=== PATIENT | female | born 2005 | race Caucasian/White ===

== ENCOUNTER 2025-04-18 15:28 | Emergency (ER) | payer OTHER, SELFPAY ==
--- OUTSIDE RECORDS SUMMARY | 2025-03-26 10:00 | XMS_ITS | Encounter Summary ---
Author Organization [facility] Address [address] [place] [address] Care Team Providers Care Ambulance Dispatcher Name Role Phone Agatha Saucedo MD Primary Care Provider [phone] Reason for Visit * Reason Comments Annual Exam 19 yEAR Encounter Details Date Type Department Care Team (Late st Contact Info) Description 03/26/2025 10:00 AM CDT Office Visit [facility] [address] [facility] [address] [place] [phone] Agatha Saucedo MD [address] [place], [place] [id number] General medical examination (Primary Dx); Nutritional counseling; Exercise counseling; Screening, anemia, deficiency, iron Social History Tobacco Use Types Packs/Day Years Used Date Smoking Tobacco: Never Smokeless Tobacco: Never Comments No Sex and Gender Information Value Date Recorded Sex Assigned at Not on file Legal Sex Female 3:57 AM ELEVATED GUARD Gender Identity Female 08/09/2022 2:43 PM ELEVATED GUARD Sexual Orientation Not on file documented as of this encounter Last Filed Vital Signs Vital Sign Reading Time Taken Comments Blood Pressure 100/60 03/26/2025 10:10 AM CDT Pulse - - Temperature - - Respiratory Rate - - Oxygen Saturation - - Inhaled Oxygen Concentration - - Weight 61 kg (134 lb 8 oz) 03/26/2025 10:10 AM C DT Height 167.6 cm (5' 6) 03/26/2025 10:10 AM CDT Body Mass Index 21.71 03/26/2025 10:10 AM CDT documented in this encounter Progress Notes * Agatha Saucedo MD - 03/26/2025 10:00 AM CDT Images from the original note were not included. Annual Adult Exam Name: Alyssa Reza Age: 19 y.o. Date: 03/26/2025 Historian(s): self Subjective Problem list : Adolescent idiopathic scoliosis of lumbar region Home Medications: norgestimate-ethinyl estradioL 1 tablet Oral Daily Past Medical, Family, Social History reviewed/updated as appropriate in medical record. Current concerns: After returning from [place] threw up and then the week after was nauseated and she was worried. It is now better School: School grade next fall: [employer]- studying biology School performance: good School accommodations: none Social/behavioral concerns: no Future plans: Deciding between medicine and research Exercise & Activities: Sports, activities, or clubs?: Walks/runs/swimming Physically active: Many days Media/screen time: 2+ hr/day PPE/Cardiac Screening: Chest pain with exercise: No Excessive SOB/fatigue w/ exercise: No Unexplained syncope/presyncope: No Hx of hypertension or murmur: No Hx of concussions: No Chronic/ongoing MSK concerns: No FHx sudden or cardiac <50 yo No FHx of cardiac disease: No Nutrition/Elimination: Well-balanced diet: yes Vitamins or supplements: none Juice/soda intake: never Fast food/junk food intake: rarely Constipation problems: none Sleep: Sleep problems: no sleep issues Menstrual History: - age of menarche: 12 years of age (answered at previous visit) - description of periods: regular, normal flow and duration, without concerning cramping Mental health: 03/26/2025 [place] Suicide Screening (USS) Scores Only ASQ Suicide Screening Score Screening Complete - no intervention necessary Patient-reported 03/26/2025 PROMIS Core 4 Scores Only PROMIS Global Mental Health T-Score 53 (Very Good) PROMIS Global Physical Health T-Score 54 (Very Good) PROMIS Positive Affect T-Score 53 (average) PROMIS Anxiety T-Score 35 (within normal limits) PROMIS Depression T-Score 36 (within normal limits) Mental health: no concerns Recent stresses or challenges: none Social/Safety: Living arrangements: Lives with both parents Others living in home: 1 brother heathy Exposure to tobacco smoke in home: No Sees a dentist regularly: yes Safety topics discussed: yes Objective BP 100/60 Ht 167.6 cm (66) Wt 61 kg (134 lb 8 oz) BMI 21.71 kg/m?? Blood pressure %bobby are not available for patients who are 18 years or older. BMI: 21.71 kg/m?? (51%, Z= 0.01, Source: [facility] (Girls, 2-20 Years)) Cryptological Technician documentation : Cryptological Technician offered and declined by patient/family General: cooperative and well appearing Head: atraumatic and normocephalic Eyes: lids, conjunctivae and sclerae normal, EOMI Ears: normal external ears, right TM pearly olvera with normal landmarks, left TM pearly olvera with normal landmarks Nose: no significant congestion/rhinorrhea Mouth: mucus membranes moist with no lesions. Tonsils are not enlarged, not inflamed. Teeth: no visible caries Neck: supple, no adenopathy, no thyromegaly or masses Lungs: clear to auscultation bilaterally Heart: regular rate and rhythm, S1, S2 normal, there is no murmur Abdomen: soft, non-distended, non-tender, no masses Back: normal curvature : Normal female external genitalia. SMR IV Skin: no rash or abnormal dyspigmentation Musculoskeletal: normal strength and movement Neuro: normal tone throughout, normal coordination, normal gait, patellar reflexes normal and symmetrical. No results found. Results for orders placed or performed in visit on 03/26/25 [facility] POCT Hemoglobin Blood Result Value Ref Range POC Hemoglobin 13.2 12.5 - 16 g/dl Lot # of the Box [id number] NULL Expiration Date 11/05/2026 NULL Assessment/Plan: 1. General medical examination 2. Nutritional counseling 3. Exercise counseling 4. Screening, anemia, deficiency, iron Annual adult exam: Growth: normal Immunizations: Vaccine counseling provided. PROMIS Disposition: Routine follow-up Suicide screening completed, no intervention needed Screenings: Vision: Vision screen: Not Assessed Hearing: Hearing screen: Not Assessed Sports Clearance: Cleared without restriction Guidance: routine guidance discussed including nutrition and physical activity Follow up: Orders Placed This Encounter Procedures Meningococcal B, OMV (Bexsero) CMG POCT Hemoglobin Blood No medications ordered at this visit Agatha Saucedo MD [facility] documented in this encounter Plan of Treatment Not on file documented as of this encounter Procedures Procedure Name Priority Date/Time Associated Diagnosis Comments CMG POCT HEMOGLOBIN BLOOD Routine 03/26/2025 10:13 AM CDT Screening, anemia, deficiency, iron documented in this encounter Results * CMG POCT Hemoglobin Blood (03/26/2025 10:13 AM CDT) [facility] POC Hemoglobin 13.2 12.5 - 16 g/dl Lot # of the Box [id number] NULL Expiration Date 11/05/2026 NULL Blood 03/26/2025 10:1 3 AM CDT Agatha Saucedo MD POINT OF CARE TEST ORDERABLES Final Result documented in this encounter Visit Diagnoses Diagnosis General medical examination- Primary Unspecified general medical examination Nutritional counseling Exercise counseling Screening, anemia, deficiency, iron Screening for iron deficiency anemia documented in this encounter Care Teams Ambulance Dispatcher Relationship Specialty Start Date End Date Agatha Saucedo MD [address] [place] [address] PCP - General Pediatrics 08/14/12 documented as of this encounter
[2025-04-18 15:39] VITALS: BP 127/86; PULSE 88; RESP 18; TEMP 37; O2SAT 98; BMI 21.8
--- NOTE | 2025-04-18 16:27 | ED_ITS ---
HPI - Abdominal Pain General Chief Complaint: Abdominal Pain Stated Complaint: Stomach pain Time Seen by Provider: 04/18/25 15:52 History of Present Illness HPI narrative: This 19-year-old female comes in reporting a few days of upper epigastric abdominal pain that seems to be worse after taking food. She states that she has taken some Tums and Pepcid and feels like she got a little bit of relief. She had similar symptoms about a month ago. She does not report any fever and otherwise is in good health. She has not had any nausea or vomiting. Related Data Home Medications ?Medication ?Instructions ?Recorded ?Confirmed control pills 04/18/25 Previous Rx's ?Medication ?Instructions ?Recorded pantoprazole 20 mg tablet,delayed 20 mg PO DAILY #20 t abs 04/18/25 release (Protonix) Allergies Allergy/AdvReac Type Severity Reaction Status Date / Time No Known Drug Allergies Allergy Verified 04/18/25 15:39 Review of Systems Status of ROS Reports: 10 or more systems reviewed and unremarkable except as noted in History and below Narrative Constitutional: No fevers, no weight gain or loss. Eyes: No discharge. No vision changes. HENT: No congestion, no sore throat, no ear pain. Cardiovascular: No chest pain, no palpitations. Respiratory: No shortness of breath, no wheezes, no cough. Gastrointestinal: No vomiting, no diarrhea. Upper epigastric abdominal pain as described above. Genitourinary: No dysuria, no hematuria. Musculoskeletal: Normal range of motion. Skin: No rashes, no pruritis. Neurological: No dizziness, weakness, sensory change, speech change. Endo/Heme/Allergies: No bruising or bleeding. No polydipsia. Pysch: no suicidality, no anxiety, no insomnia. All other systems reviewed and are negative. Exam Narrative: Exam Narrative: Constitutional: Well-developed, well-nourished, no acute distress. HEENT: Normocephalic, atraumatic. Neck: Normal range of motion. Nontender. Supple. Heart: Regular. No murmurs. Normal rate. Intact distal pulses. Lungs: Clear to auscultation. No chest discomfort. No wheezes, rhonchi, or rales. Abdomen: Normal bowel sounds. Mild tenderness in the upper epigastric region. No rebound tenderness. Genitalia: Deferred. Back: No midline tenderness. Normal range of motion. Extremities: Normal range of motion. No injury. Skin: Intact. No rash. Warm. No erythema or pallor. Neurologic: No altered sensation. No weakness. Alert and oriented. Psychiatric: No suicidality. No anxiety or depression. No insomnia. Nursing notes and vitals signs are reviewed. Const: Vital Signs, click to edit/add: Vital Signs - 24 hr 04/18/25 15:39 Temperature 98.6 F Pulse Rate [Right Pulse Oximeter] 88 Respiratory Rate 18 Blood Pressure [Ri ght Upper Arm] 127/86 Pulse Oximetry 98 Oxygen Delivery Me thod Room Air Course Vital Signs Vital signs: Initial Vital Signs Temperature 98.6 F 04/18/25 15:39 Temperature Source Temporal Artery Scan 04/18/25 15:39 Pulse Rate 88 04/18/25 15:39 Respiratory Rate 18 04/18/25 15:39 Blood Pressure 127/86 04/18/25 15:39 Blood Pressure Mean 99 04/18/25 15:39 Blood Pressure Position Sitting 04/18/25 15:39 Pulse Oximetry 98 04/18/25 15:39 Oxygen Delivery Method Room Air 04/18/25 15:39 Vital Signs Temperature 98.6 F 04/18/25 15:39 Pulse Rate 88 04/18/25 15:39 Respiratory Rate 18 04/18/25 15:39 Blood Pressure 127/86 04/18/25 15:39 Pulse Oximetry 98 04/18/25 15:39 Oxygen Delivery Method Room Air 04/18/25 15:39 Temperature 98.6 F 04/18/25 15:39 Pulse Rate 88 04/18/25 15:39 Respiratory Rate 18 04/18/25 15:39 Blood Pressure 127/86 04/18/25 15:39 Pulse Oximetry 98 04/18/25 15:39 Oxygen Delivery Method Room Air 04/18/25 15:39 MDM - Abdominal Pain MDM Narrative Medical decision making narrative: This patient comes in with upper epigastric pain more typical of gastritis or reflux esophagitis. She arrives with normal vital signs. She is not in much discomfort at this time. She does not have any pain in her right upper quadrant when palpating over her gallbladder. I did use bedside ultrasound to look at her gallbladder and upper abdomen structures with normal results. I did provide a prescription for Protonix and instructed her regarding some foods and drinks that can be offensive for these symptoms. Discharge Plan Discharge Clinical Impression: Gastritis Patient Disposition: Home, Self-Care Condition: Stable Additional Instructions: Take medication as prescribed. Follow up with MD or return if symptoms are persistent or worsening. Prescriptions: New pantoprazole [Protonix] 20 mg tablet,delayed release (DR/EC) 20 mg PO DAILY Qty: 20 2RF No Action control pills Stand Alone Forms: [employer] Info Instructions Procedures POC Ultrasound Biliary Anatomical areas examined: gallbladder, long and short axis and common bile duct Indications: RUQ/epigastric pain Exam type: limited abdominal ultrasound; RUQ Impression: normal exam
--- OUTSIDE RECORDS SUMMARY | 2025-04-18 16:58 | XMS_ITS | Encounter Summary ---
Author Organization [facility] Address [address] [place] [address] Care Team Providers Care Teacher Cclc Name Role Phone Agatha Saucedo MD Primary Care Provider [phone] Reason for Visit * Reason Comments Medication Refill Encounter Details Date Type Department Care Team (Late st Contact Info) Description 04/06/2025 Refill [facility] [address] [place] [phone] Ankita Orr APNP [address] [place] [address] Medication Refill Social History Tobacco Use Types Packs/Day Years Used Date Smoking Tobacco: Never Smokeless Tobacco: Never Comments No Sex and Gender Information Value Date Recorded Sex Assigned at Not on file Legal Sex Female 3:57 AM AQUATIC PERFORMER Gender Identity Female 08/09/2022 2:43 PM AQUATIC PERFORMER Sexual Orientation Not on file documented as of this encounter Miscellaneous Notes * Telephone Encounter - Jeremy Ferguson RN - 04/08/2025 11:31 AM CDT Medication Refill Alyssa Reza : 2005 Age: 19 y.o. Date: 04/08/2025, 11:31 AM PCP: Agatha Saucedo MD Call taken by: Jeremy Ferguson RN Medication(s) and dose needing refilled: norgestimate-ethinyl estradioL (ORTHO- CYCLEN) 0.25-35 mg-mcg per tablet Any concerns with the medication? none Additional Medications needing Refill: No Current allergies: Cats New allergies or meds? no Allergy List Verified? yes Refill preference: Pharmacy verified: yes Last Med [facility] APPT: Last [facility] appointment: 03/26/2025 [facility] in last 12 months verified? yes No future appointments. documented in this encounter Plan of Treatment Not on file documented as of this encounter Visit Diagnoses Diagnosis Dysmenorrhea- Primary documented in this encounter Care Teams Teacher Cclc Relationship Specialty Start Date End Date Agatha Saucedo MD [address] [place] [address] PCP - General Pediatrics 08/14/12 documented as of this encounter
--- OUTSIDE RECORDS SUMMARY | 2025-04-18 16:58 | XMS_ITS | Encounter Summary ---
Author Organization [facility] Address [address] [facility] [place] [address] Care Team Providers Care Wool Sorter Name Role Phone Agatha Saucedo MD Primary Care Provider [phone] Reason for Visit * Reason Comments Neck Pain Encounter Details Date Type Department Care Team (Late st Contact Info) Description 08/24/2014 Telephone [facility] [address] [phone] Agatha Saucedo MD [address] [place], [place] [phone] Neck Pain Social History Tobacco Use Types Packs/Day Years Used Date Smoking Tobacco: Never Assessed Comments Unknown Sex and Gender Information Value Date Recorded Sex Assigned at Not on file Legal Sex Female 3:57 AM VACUUM CLEANER MECHANIC Gender Identity Female 08/09/2022 2:43 PM VACUUM CLEANER MECHANIC Sexual Orientation Not on file documented as of this encounter Miscellaneous Notes * Telephone Encounter - Agatha Saucedo MD - 08/24/2014 4:28 PM CST Agree with assessment and plan below. Agatha Saucedo MD UM CLEANER MECHANIC * Telephone Encounter - Cinthya Pritchard RN - 08/24/2014 4:19 PM CST Alyssa Counts 9 y.o. female Allergies Allergen Reactions ??? Cats Swelling has a current medication list which includes the following prescription(s): acetaminophen, amoxicillin, hydrocortisone, and imiquimod cream. Mom contacted office. Alyssa has a pulled muscle in her neck for 2 days. Heat and Motrin make symptoms better. Afebrile and denies other symptoms. Discussed continue with heat, rest and Motrin every 6 hours. If symptoms do not improve or worsen in the next 2 days, appointment recommended. Mom voiced understanding. Cinthya Pritchard UM CLEANER MECHANIC documented in this encounter Plan of Treatment Not on file documented as of this encounter Visit Diagnoses Not on filedocumented in this encounter Care Teams Wool Sorter Relationship Specialty Start Date End Date Agatha Saucedo MD [address] [place] [address] PCP - General Pediatrics 08/14/12 documented as of this encounter
--- OUTSIDE RECORDS SUMMARY | 2025-04-18 16:58 | XMS_ITS | Encounter Summary ---
Author Organization [facility] Address [address] [place] [address] Care Team Providers Care Veneer Splicer Name Role Phone Agatha Saucedo MD Primary Care Provider [phone] Encounter Details Date Type Department Care Team (Late st Contact Info) Description 05/25/2011 Abstract [facility] [address] [place] [address] [facility] Historical, Provider [address] [place] [address] Social History Tobacco Use Types Packs/Day Years Used Date Smoking Tobacco: Never Assessed Comments Unknown Sex and Gender Information Value Date Recorded Sex Assigned at Not on file Legal Sex Female 3:57 AM STOCK PATCH SAWYER Gender Identity Female 08/09/2022 2:43 PM STOCK PATCH SAWYER Sexual Orientation Not on file documented as of this encounter Last Filed Vital Signs Vital Sign Reading Time Taken Comments Blood Pressure - - Pulse - - Temperature - - Respiratory Rate - - Oxygen Saturation - - Inhaled Oxygen Concentration - - Weight 27.3 kg (60 lb 3 oz) 05/25/2011 6:50 PM C DT Height - - Body Mass Index - - documented in this encounter Plan of Treatment Not on file documented as of this encounter Visit Diagnoses Not on filedocumented in this encounter Care Teams Veneer Splicer Relationship Specialty Start Date End Date Agatha Saucedo MD [address] [place], [place] [phone] PCP - General Pediatrics 08/14/12 documented as of this encounter
--- OUTSIDE RECORDS SUMMARY | 2025-04-18 16:58 | XMS_ITS | Encounter Summary ---
Author Organization [facility] Address [address] [place] [address] Care Team Providers Care Mixer Operator Raw Salt Name Role Phone Agatha Saucedo MD Primary Care Provider [phone] Encounter Details Date Type Department Care Team (Late st Contact Info) Description 07/16/2024 [facility] [address] [phone] Agatha Saucedo MD [address] [place], [place] [phone] Social History Tobacco Use Types Packs/Day Years Used Date Smoking Tobacco: Never Smokeless Tobacco: Never Comments No Sex and Gender Information Value Date Recorded Sex Assigned at Not on file Legal Sex Female 3:57 AM FOSTER CARE THERAPIST Gender Identity Female 08/09/2022 2:43 PM FOSTER CARE THERAPIST Sexual Orientation Not on file documented as of this encounter Plan of Treatment Not on file documented as of this encounter Visit Diagnoses Not on filedocumented in this encounter Care Teams Mixer Operator Raw Salt Relationship Specialty Start Date End Date Agatha Saucedo MD [address] [place], [place] [phone] PCP - General Pediatrics 08/14/12 documented as of this encounter
--- OUTSIDE RECORDS SUMMARY | 2025-04-18 16:58 | XMS_ITS | Clinical Summary ---
Author Organization [facility] Address [address] [facility] [place] [address] Care Team Providers Care Product Builder Name Role Phone Agatha Saucedo MD Primary Care Provider Allergies Active Allergy Reactions Criticality Noted Date Comments Cats Swelling High 07/26/2012 Medications ESTARYLLA 0.25-0.035 mg per tabletIndicatio ns:Dysmenorrhea TAKE 1 TABLET BY MOUTH DAILY 84 tablet 2 5 Active norgestimate-et hinyl estradioL (ORTHO-CYCLEN) 0.25-35 mg-mcg per tabletIndicatio ns:Dysmenorrhea Take 1 tablet by mouth daily. 84 tablet 2 4 04/08/20 25 Discontinued Active Problems Problem Noted Date Diagnosed Date Adolescent idiopathic scoliosis of lumbar region 12/04/2017 Overview (01/10/2020): Recheck 07/2020 Resolved Problems Problem Noted Date Diagnosed Date Resolved Date Patellofemoral pain syndrome of right knee 03/20/2019 01/23/2020 Alternate vaccine schedule 11/21/2016 0 01/23/2020 Overview (11/21/2016): Will come back for menactra Tachycardia 08/19/2012 11/21/2016 Encounters Date Type Department Care Team Description 04/06/2025 Refill [facility] [address] [place] [address] Ankita Orr APNP Medication Refill 03/26/2025 10:00 AM CDT Office Visit [facility] [address] [place] [address] Agatha Saucedo MD General medical examination (Primary Dx); Nutritional counseling; Exercise counseling; Screening, anemia, deficiency, iron from Last 3 Months Immunizations Immunization Administration Dates Next Due DTaP,less than 7yo 02/28/2007 DTaP/Hep B/IPV(Pediarix) 02/14/2006,2005,0 2005 DTaP/IPV(Kinrix/Quadracel) 09/24/2009 HPV 9-VALENT 03/08/2021,01/23/2020 Hepatitis A Peds 2 Dose 02/28/2007,08/20/2006 Hepatitis B Peds/Adol 2005 HiB (PRP-OMP) 11/16/2006, 6,2005,10/16 Influenza A H1N1,unspecified 08/03/2009 Influenza Quadrivalent P-Free 08/23/2017 Influenza Vaccine Trivalent, Preservative Free 07/21/2024 MMR 06/09/2011 MMRV(Proquad) 08/20/2006 Meningococcal B, Omv (Bexsero) 03/26/2025,2023 Meningococcal Conjugate MCV4O 11/23/2022 Meningococcal Conjugate MCV4P 03/16/2017 Pfizer Purple Cap SARS-CoV-2 Vaccination, 12 and older 01/08/2021,12/18/2020 Pneumococcal Conjugate PCV 7 11/16/2006,12/15/19 06,2005 Tdap 11/21/2016 Varicella 10/24/2011 Family History Medical History Relation Comments Asthma Brother Seasonal allergies Father Migraines Maternal Aunt Skin Disorder Maternal Aunt rashes Hypertension Maternal Grandmother Migraines Mother Cancer Paternal Grandfather Cancer Paternal Uncle Relation Status Comments Brother Father Maternal Aunt Maternal Grandmother Mother Paternal Grandfather Paternal Uncle Social History Tobacco Use Types Packs/Day Years Used Date Smoking Tobacco: Never Smokeless Tobacco: Never Comments No Sex and Gender Information Value Date Recorded Sex Assigned at Not on file Legal Sex Female 3:57 AM SYSTEM ANALYST Gender Identity Female 08/09/2022 2:43 PM SYSTEM ANALYST Sexual Orientation Not on file Last Filed Vital Signs Vital Sign Reading Time Taken Comments Blood Pressure 100/60 03/26/2025 10:10 AM CDT Pulse 62 07/02/2023 4:06 PM SYSTEM ANALYST Temperature 36.4 C (97.6 F) 07/02/2023 4:06 PM SYSTEM ANALYST Respiratory Rate 20 07/02/2023 4:06 PM SYSTEM ANALYST Oxygen Saturation 100% 08/19/2012 11:07 AM SYSTEM ANALYST Inhaled Oxygen Concentration - - Weight 61 kg (134 lb 8 oz) 03/26/2025 10:10 AM C DT Height 167.6 cm (5' 6) 03/26/2025 10:10 AM CDT Body Mass Index 21.71 03/26/2025 10:10 AM CDT Plan of Treatment Health Maintenance Due Date Last Done Comments COVID-19 Vaccine ( season) 2025 09/16/2021, 01/08/2021, 12/18/2020 Influenza Vaccine Sequential (#1) 2025 07/21/2024, 08/23/2017 Pneumococcal Vaccine: Pediatrics (0 to 5 Years) and At-Risk Patients (6 to 64 Years) Aged Out 11/16/2006, 2005, 2005 No longer eligible based on patient's age to complete this topic Hearing Screening age 18-21 Completed 10/29, 11/26/2023, 11/26/2023, Additional history exists Procedures Procedure Name Priority Date/Time Associated Diagnosis Comments G POCT HEMOGLOBIN BLOOD Routine 03/26/2025 10:13 AM CDT Screening, anemia, deficiency, iron from Last 3 Months Results * CMG POCT Hemoglobin Blood (03/26/2025 10:13 AM CDT) POC Hemoglobin 13.2 12.5 - 16 g/dl Lot # of the Box [id number] NULL Expiration Date 11/05/2026 NULL Blood 03/26/2025 10:1 3 AM CDT Agatha Saucedo MD POINT OF CARE TEST ORDERABLES Final Result from Last 3 Months Insurance [employer] HEALTH POS OR HMO Member Subscriber Plan / Payer (Ef fective 2017-Present) Name:Alyssa Reza Relation to Subscriber:Self Name:Alyssa Reza Payer ID:[id number] (NAIC) Type:POS Address: [place] [id number] Deep Driver POS OR HMO Deep Driver POS OR HMO [facility] POS OR HMO Care Teams Product Builder Relationship Specialty Start Date End Date Agatha Saucedo MD [address] [place] [address] PCP - General Pediatrics 08/14/12
== END 2025-04-18 17:23 | disposition home or self-care (01) ==
LOC: ED 16:57
PROVIDERS: Emergency Provider Emergency Medicine Emergency Medical Services
DX: K29.70 Gastritis, unspecified, without bleeding (principal)
CPT/HCPCS: 76705; 99283; 99284